=== PATIENT | female | born 1960 | race Caucasian/White ===

== ENCOUNTER 2023-02-08 19:14 | Emergency (ER) | payer MEDICAID ==
[~2023-02-08] VITALS: Ht 152.4 cm; Wt 63.5 kg
[2023-02-08 19:28] VITALS: BP_SYST 131
[2023-02-08 19:56] LABS: BASOPHILS % (AUTO) 0.5 % (0.0-2.0); EOSINOPHILS # (AUTO) 0.1 K/uL (0.0-0.4); EOSINOPHILS % (AUTO) 1.5 % (0.0-4.0); HEMATOCRIT 38.5 % (36-48); HEMOGLOBIN 13.4 g/dL (12.0-16.0); LYMPHOCYTES # (AUTO) 3.2 K/uL (1.0-5.5); LYMPHOCYTES % (AUTO) 35.2 % (20.5-51.5); MEAN CORPUSCULAR HEMOGLOBIN 29 pg (27-31); MEAN CORPUSCULAR HGB CONC 35 % (32-36); MEAN CORPUSCULAR VOLUME 84 fL (79.0-98.0); MONOCYTES # (AUTO) 0.6 K/uL (0.0-1.0); MONOCYTES % (AUTO) 7.1 % (1.7-9.3); NEUTROPHILS % (AUTO) 55.7 % (40.0-70.0); PLATELET COUNT (AUTO) 407 K/uL (130-430); RED BLOOD CELL COUNT(AUTO) 4.58 MIL/uL (4.2-6.2); RED CELL DISTRIBUTION WIDTH 13.5 % (9.0-15.0)
[2023-02-08 20:13] LABS: ALBUMIN 2.3 g/dL (3.4-4.8); CALCIUM 8.8 mg/dL (8.4-11.0); CREATININE 1.23 mg/dL (0.55-1.30); THYROID STIMULATING HORMONE 3.3 uIu/mL (0.36-3.74); TOTAL BILIRUBIN 0.1 mg/dL (0.0-1.0)
[2023-02-08 21:54] VITALS: BP_SYST 131
== END 2023-02-08 23:51 | disposition home or self-care (01) ==
LOC: SED 19:14
DX: E11.649 Type 2 diabetes mellitus with hypoglycemia without coma (principal); T78.8XXA Other adverse effects, not elsewhere classified, initial encounter; R11.2 Nausea with vomiting, unspecified; I10 Essential (primary) hypertension; Z79.899 Other long term (current) drug therapy; X58.XXXA Exposure to other specified factors, initial encounter
CPT/HCPCS: 36415; 80053; 82962; 83690; 84443; 85025; 99283

== ENCOUNTER 2023-02-17 21:27 | Observation (INO) | payer MEDICAID ==
[~2023-02-17] VITALS: Ht 165.1 cm; Wt 64.9 kg
[2023-02-17 21:46] VITALS: BP_SYST 167
[2023-02-17] MEDS ORDERED: DEXTROSE 50% JECT 50 ML DISP.SYRIN IVP ONE (22:00)
[2023-02-18] MEDS ORDERED: KCL 20 mEq in D5/0.45NS 1000mL 1,000 ML IV ONE
[2023-02-18] MEDS ORDERED: DEXTROSE 50% JECT 50 ML DISP.SYRIN ONE (00:06)
[2023-02-18 00:26] LABS: BASOPHILS # (AUTO) 0.1 K/uL (0.0-0.2); BASOPHILS % (AUTO) 0.7 % (0.0-2.0); EOSINOPHILS % (AUTO) 0.4 % (0.0-4.0); HEMATOCRIT 37.8 % (36-48); HEMOGLOBIN 13.1 g/dL (12.0-16.0); LYMPHOCYTES # (AUTO) 1.3 K/uL (1.0-5.5); LYMPHOCYTES % (AUTO) 13.9 % (20.5-51.5); MEAN CORPUSCULAR HEMOGLOBIN 29 pg (27-31); MEAN CORPUSCULAR HGB CONC 35 % (32-36); MEAN CORPUSCULAR VOLUME 84 fL (79.0-98.0); MONOCYTES # (AUTO) 0.3 K/uL (0.0-1.0); MONOCYTES % (AUTO) 3.1 % (1.7-9.3); NEUTROPHILS # (AUTO) 7.4 K/uL (1.8-7.7); NEUTROPHILS % (AUTO) 81.9 % (40.0-70.0); PLATELET COUNT (AUTO) 374 K/uL (130-430); RED BLOOD CELL COUNT(AUTO) 4.51 MIL/uL (4.2-6.2); RED CELL DISTRIBUTION WIDTH 13.5 % (9.0-15.0)
[2023-02-18 00:52] LABS: ALANINE AMINOTRANSFERASE 12 U/L (12-78); ALBUMIN 2.4 g/dL (3.4-4.8); ANION GAP 4 (5-15); ASPARTATE AMINOTRANSFERASE 20 U/L (10-37); CHLORIDE 96 mmol/L (98-107); CREATININE 1.41 mg/dL (0.55-1.30); GFR AFRICAN AMERICAN 48 mL/min (>90); GLUCOSE 193 mg/dL (70-99); TOTAL BILIRUBIN 0.2 mg/dL (0.0-1.0); UREA NITROGEN, BLOOD 21 mg/dL (8-21)
[2023-02-18 00:54] LABS: ALCOHOL, BLOOD < 3 mg/dL (<10); PHOSPHORUS 4.7 mg/dL (2.7-4.5)
[2023-02-18] MEDS ORDERED: D5/0.45 NS 1,000 ML IV ONE (03:15)
[2023-02-18 06:30] VITALS: BP_SYST 144
[2023-02-18 08:00] VITALS: BP_SYST 158
[2023-02-18 11:22] VITALS: BP_SYST 116
[2023-02-18] MEDS: INSULIN REGULAR, HUMAN 100 UNITS/ML, 3 ML VIAL (humuLIN R) SUBCUT PRN ×3 (11:33→23:52)
[2023-02-18] MEDS ORDERED: SERT-436 PO (14:25)
[2023-02-18] MEDS ORDERED: METF-1069 PO (14:25)
[2023-02-18] MEDS ORDERED: HYDR25TA4 PO (14:25)
[2023-02-18] MEDS ORDERED: LIP40 PO (14:25)
[2023-02-18] MEDS ORDERED: LISI20TA30 PO (14:25)
[2023-02-18 15:09] VITALS: BP_SYST 139
[2023-02-18 20:00] VITALS: BP_SYST 163
[2023-02-19] VITALS: BP_SYST 148
[2023-02-19 08:00] VITALS: BP_SYST 134; BP_SYST 142
[2023-02-19 11:10] VITALS: BP_SYST 146
[2023-02-19] MEDS: INSULIN REGULAR, HUMAN 100 UNITS/ML, 3 ML VIAL (humuLIN R) SUBCUT PRN (12:11)
[2023-02-19 15:05] VITALS: BP_SYST 158
[2023-02-19 17:40] VITALS: BP_SYST 140
== END 2023-02-19 19:55 | disposition home or self-care (01) ==
LOC: SED 21:27 → STU 02-18 03:06 → SMU 02-18 18:29
PROVIDERS: ADMIT Internal Medicine; ATTEND Internal Medicine
DX: E11.649 Type 2 diabetes mellitus with hypoglycemia without coma (principal); I10 Essential (primary) hypertension; E78.5 Hyperlipidemia, unspecified; F41.8 Other specified anxiety disorders; Z79.899 Other long term (current) drug therapy
CPT/HCPCS: 93005; 71045; 70450; 72125; 76376; 96360; 96361; 96372 ×2; 80053; 82962; 84100; 85025; 84484; 36415; 99291; 83605; G0482; G0378 ×2

== ENCOUNTER 2023-03-17 14:38 | Emergency (ER) | payer MEDICAID ==
[~2023-03-17] VITALS: Ht 162.6 cm; Wt 54.4 kg
[~2023-03-17 14:38] MED LIST: HYDR25TA4 PO; LIP40 PO; LISI20TA30 PO; METF-1069 PO; SERT-436 PO
--- NOTE | 2023-03-17 14:50 | NUR ---
Patient to ER bed 08 to gown for evaluation. Side rails up.
[2023-03-17 14:56] VITALS: BP_SYST 150; PULSE 83; RESP 18; TEMP 98.3; O2SAT 98
[2023-03-17] MEDS ORDERED: METOCLOPRAMIDE HCL 10 MG/2 ML VIAL IVP ONE (15:00)
[2023-03-17] MEDS ORDERED: MECLIZINE HCL 25 MG TABLET (ANITVERT) PO ONE (15:00)
--- NOTE | 2023-03-17 15:39 | NUR ---
In ER 8 IV placed Blood and urine sent
[2023-03-17 16:24] LABS: BASOPHILS # (AUTO) 0.1 K/uL (0.0-0.2); BASOPHILS % (AUTO) 1.1 % (0.0-2.0); EOSINOPHILS # (AUTO) 0.1 K/uL (0.0-0.4); EOSINOPHILS % (AUTO) 0.8 % (0.0-4.0); HEMATOCRIT 36.9 % (36-48); HEMOGLOBIN 12.9 g/dL (12.0-16.0); LYMPHOCYTES # (AUTO) 1.9 K/uL (1.0-5.5); LYMPHOCYTES % (AUTO) 23.9 % (20.5-51.5); MEAN CORPUSCULAR HEMOGLOBIN 28 pg (27-31); MEAN CORPUSCULAR HGB CONC 35 % (32-36); MEAN CORPUSCULAR VOLUME 81 fL (79.0-98.0); MONOCYTES # (AUTO) 0.6 K/uL (0.0-1.0); NEUTROPHILS # (AUTO) 5.4 K/uL (1.8-7.7); NEUTROPHILS % (AUTO) 67.2 % (40.0-70.0); PLATELET COUNT (AUTO) 453 K/uL (130-430); RED BLOOD CELL COUNT(AUTO) 4.57 MIL/uL (4.2-6.2); RED CELL DISTRIBUTION WIDTH 13.4 % (9.0-15.0)
[2023-03-17 16:30] LABS: BILIRUBIN,URINE NEGATIVE (NEGATIVE); BLOOD, URINE NEGATIVE (NEGATIVE); CLARITY/URINE CLEAR (CLEAR); COLOR,URINE YELLOW (YELLOW); GLUCOSE,URINE NEGATIVE (NEGATIVE); KETONES,URINE TRACE (NEGATIVE); LEUKOCYTE ESTERASE ,URINE NEGATIVE (NEGATIVE); NITRITE, URINE NEGATIVE (NEGATIVE); PH,URINE 8.5 (5.0-8.0); PROTEIN URINE 3+ (NEGATIVE); UROBILINOGEN,URINE 0.2 (0.2-1.0)
[2023-03-17 16:38] LABS: INR 0.9 (0.8-1.2); PROTHROMBIN TIME 9.8 SECS (9.5-12.5)
[2023-03-17 16:40] LABS: BACTERIA,URINE None Seen /HPF (None Seen); RBC,URINE 0-3 /HPF (0-3)
[2023-03-17 16:42] LABS: ANION GAP 9 (5-15); CALCIUM 9.1 mg/dL (8.4-11.0); CHLORIDE 89 mmol/L (98-107); CREATININE 1.39 mg/dL (0.55-1.30); GFR AFRICAN AMERICAN 49 mL/min (>90); GLUCOSE 123 mg/dL (74-106); UREA NITROGEN, BLOOD 28 mg/dL (8-21)
[2023-03-17 16:43] LABS: MUCUS,URINE None Seen /LPF (None Seen)
[2023-03-17 16:46] LABS: ALANINE AMINOTRANSFERASE 21 U/L (12-78); ALBUMIN 2.8 g/dL (3.4-4.8); ASPARTATE AMINOTRANSFERASE 24 U/L (10-37); TOTAL BILIRUBIN 0.4 mg/dL (0.0-1.0)
[2023-03-17] MEDS ORDERED: NACL 0.9% 1,000 ML IV ONE (17:15)
[2023-03-17] MEDS ORDERED: MECL-261 PO (17:17)
[2023-03-17 17:37] VITALS: BP_SYST 185; PULSE 95; RESP 18; TEMP 98.4; O2SAT 99
--- NOTE | 2023-03-17 17:59 | NUR ---
Patient data reviewed by MD Given NS 1000 Advised to F/U with Primary and GI. Given ACI To exit
== END 2023-03-17 17:37 | disposition home or self-care (01) ==
LOC: SED 14:38
DX: R42 Dizziness and giddiness (principal); E87.1 Hypo-osmolality and hyponatremia; R51.9 Headache, unspecified; R11.10 Vomiting, unspecified; E11.9 Type 2 diabetes mellitus without complications; I10 Essential (primary) hypertension; Z79.899 Other long term (current) drug therapy
CPT/HCPCS: 99285; 96374; 70450; 71045; 80053; 81000; 85025; 85610; 85730; 84484; 36415; 93005; 76376; J8597; J2765

== ENCOUNTER 2023-03-27 08:56 | Emergency (ER) | payer MEDICAID ==
[~2023-03-27] VITALS: Ht 152.4 cm; Wt 56.7 kg
[~2023-03-27 08:56] MED LIST changes: +MECL-261 PO
[2023-03-27 09:00] VITALS: BP_SYST 189; PULSE 75; RESP 19; TEMP 98; O2SAT 100
[2023-03-27] MEDS ORDERED: KETOROLAC TROMETHAMINE 30 MG VIAL IVP ONE (09:30)
[2023-03-27 09:37] LABS: BASOPHILS # (AUTO) 0.1 K/uL (0.0-0.2); EOSINOPHILS # (AUTO) 0.1 K/uL (0.0-0.4); EOSINOPHILS % (AUTO) 2.2 % (0.0-4.0); HEMATOCRIT 34.2 % (36-48); HEMOGLOBIN 12.1 g/dL (12.0-16.0); LYMPHOCYTES % (AUTO) 24.2 % (20.5-51.5); MEAN CORPUSCULAR HEMOGLOBIN 28 pg (27-31); MEAN CORPUSCULAR HGB CONC 35 % (32-36); MEAN CORPUSCULAR VOLUME 81 fL (79.0-98.0); MONOCYTES # (AUTO) 0.4 K/uL (0.0-1.0); MONOCYTES % (AUTO) 10.1 % (1.7-9.3); NEUTROPHILS # (AUTO) 2.6 K/uL (1.8-7.7); NEUTROPHILS % (AUTO) 61.5 % (40.0-70.0); PLATELET COUNT (AUTO) 326 K/uL (130-430); RED BLOOD CELL COUNT(AUTO) 4.24 MIL/uL (4.2-6.2); RED CELL DISTRIBUTION WIDTH 13.5 % (9.0-15.0); WHITE BLOOD COUNT (AUTO) 4.3 K/uL (4.8-10.8)
[2023-03-27 09:57] LABS: ANION GAP 7 (5-15); CALCIUM 8.7 mg/dL (8.4-11.0); CHLORIDE 91 mmol/L (98-107); CREATININE 1.05 mg/dL (0.55-1.30); GFR AFRICAN AMERICAN 68 mL/min (>90); GLUCOSE 169 mg/dL (74-106); UREA NITROGEN, BLOOD 18 mg/dL (8-21)
[2023-03-27 09:59] LABS: INR 0.9 (0.8-1.2); PROTHROMBIN TIME 9.5 SECS (9.5-12.5)
[2023-03-27 10:04] LABS: ALANINE AMINOTRANSFERASE 11 U/L (12-78); ALBUMIN 2.3 g/dL (3.4-4.8); ASPARTATE AMINOTRANSFERASE 19 U/L (10-37); PHOSPHORUS 3.5 mg/dL (2.7-4.5); TOTAL BILIRUBIN 0.4 mg/dL (0.0-1.0)
[2023-03-27] MEDS ORDERED: NACL 0.9% 1,000 ML IV ONE (10:45)
[2023-03-27] MEDS ORDERED: IPRATROPIUM/ALBUTEROL SULFATE 3 ML AMPUL.NEB (DUONEB) INH ONE (10:45)
[2023-03-27] MEDS ORDERED: ONDANSETRON HCL 4 MG/2 ML VIAL IVP ONE (11:30)
[2023-03-27] MEDS ORDERED: MORPHINE 4 MG INJ. 4 MG/ML VIAL IVP ONE (11:30)
[2023-03-27] MEDS ORDERED: IBUP-1969 PO (12:39)
[2023-03-27 14:19] VITALS: BP_SYST 178; PULSE 80; RESP 19; TEMP 98; O2SAT 100
[2023-04-01] MEDS ORDERED: ACYC-133 PO (23:16)
[2023-04-02] MEDS ORDERED: METF-379 PO (07:08)
[2023-04-03] MEDS ORDERED: METO25TA6 PO (09:54)
== END 2023-03-27 14:15 | disposition home or self-care (01) ==
LOC: SED 08:56
DX: M94.0 Chondrocostal junction syndrome [Tietze] (principal); R07.89 Other chest pain; R06.02 Shortness of breath; R05.9 Cough, unspecified; E11.9 Type 2 diabetes mellitus without complications; I10 Essential (primary) hypertension; Z79.899 Other long term (current) drug therapy
CPT/HCPCS: 99285; 96374; 71045; 96375; 96361; 80053; 82550; 83880; 83735; 84100; 85025; 85379; 85610; 85730; 84484; 36415; 93005; J1885; J2405; J2270; J7030